=== PATIENT | male | born 1975 | race Caucasian/White ===

== ENCOUNTER 2024-03-19 06:56 | Emergency (ER) | payer OTHER, BC ==
[2024-03-19] MEDS: Ketorolac 30 MG/ML SDV IM ONE (07:35)
== END 2024-03-19 08:21 | disposition home or self-care (01) ==
LOC: JP.ED 06:56
DX: S93.402A Sprain of unspecified ligament of left ankle, initial encounter (principal); F17.210 Nicotine dependence, cigarettes, uncomplicated; Z79.899 Other long term (current) drug therapy; X50.1XXA Overexertion from prolonged static or awkward postures, initial encounter; Y99.0 Civilian activity done for income or pay
CPT/HCPCS: 73610; 96372; 99283; J1885

== ENCOUNTER 2025-01-07 12:27 | Emergency (ER) | payer OTHER, BC | END 2025-01-07 14:57 | disposition home or self-care (01) | LOC: JP.ED 12:27 | DX: S61.213A Laceration without foreign body of left middle finger without damage to nail, initial encounter (principal); Z79.899 Other long term (current) drug therapy; W26.0XXA Contact with knife, initial encounter | CPT/HCPCS: 12002; 99282; J2003 ==